=== PATIENT | female | born 1985 | race Caucasian/White ===

== ENCOUNTER 2017-06-16 19:44 | Emergency (ER) | payer OTHER, MEDICAID ==
[~2017-06-16] VITALS: Ht 160 cm; Wt 67.3 kg
[~2017-06-16 19:44] MED LIST: FES300 PO; PREN1TAB69 PO
[2017-06-16 20:33] VITALS: BP 111/74; PULSE 59; RESP 16; O2SAT 99
--- NOTE | 2017-06-16 21:36 | DRSVH ---
PROCEDURE: X-RAY RIGHT ANKLE, MINIMUM THREE VIEWS ([id number]) INDICATIONS: Twisted ankle, worsening pain TECHNIQUE: 3 views of the ankle were acquired. COMPARISON: None. FINDINGS: Bones: No fractures or dislocations. Ankle mortise is normally aligned. No suspicious bony lesions . Soft tissues: No tibiotalar joint effusion. Achilles tendon appears normal. IMPRESSION: No visualized acute fracture or dislocation. However, if clinical concern and/or pain pe rsist, short interval imaging followup in 7-10 days is recommended, as occult injury cannot be defini tively excluded. Dictated by: Ashley Garcia M.D. on 06/16/2017 at 21:34 Approved by: Ashley Garcia M.D. on 06/16/2017 at 21:35
--- NOTE | 2017-06-16 22:45 | ED.REPORT ---
HPI-Extremity Problem Lower Date of Service Jun 16, 2017 ED Provider: Doc,Ed MD A 32 year old female with a history of fibromyalgia, arthritis and degenerative disc disease presents to the ED complaining of right ankle pain. The pt tripped on the stairs this morning and twisted her ankle inward. The pain has worsened with ambulation throughout the day and the pt now finds it difficult to walk. No other trauma is reported. Nursing Notes Stated Complaint: HURT ANKLE Chief Complaint: Extremity Trauma Nursing Notes Reviewed: Yes Allergies: Coded Allergies: [place] (Verified Allergy, Unknown, 06/16/17) Scheduled Ferrous Sulfate-Expunged Drug, Do Not Renew! (Feosol-Expunged Drug, Do Not Renew !) 325 Mg Tablet 325 ( PO DAILY Vit/Fe Fumarate/Fa-Expunged Drug, Do (-Expunged Drug, Do Not Renew!) 1 Each Tablet 1 EACH PO AM General Time Seen by MD: 22:44 Chief Complaint Ankle injury right Hx Obtained From: Patient Arrived By: Walk-in Onset Occurred: 9 - 12 hours ago Symptom Duration: Since onset Recent Healthcare: Recent doctor visit Similar Sx Previous: No Past Medical History Past Medical History Degeneritive Disc Disease Fibromyalgia Scoliosis Arthritis Hx sternum injury Past Surgical History C section Family History noncontributory Smoking History Current Every Day Smoker Social History Alcohol Use: Denies alcohol use Drug Use: THC Other Social History: Good social support, Lives with children, Local resident Occupation Works at [employer] Ambulatory Status Independent Review of Systems Musculoskeletal: Reports: Extremity pain, Denies: Back pain, Neck pain Skin: Denies Rash Complete sys rev & neg: except as marked. Respiratory: Denies: Non-productive cough, Shortness of breath Cardiovascular: Denies: Chest pain GI: Denies: Abdominal pain, Vomiting Physical Exam Initial Vital Signs Vital Signs (First) Date Time Temp Pulse Resp B/P Pulse Ox O2 Delivery O2 Flow Rate FiO2 06/16/17 20:33 37.1 59 16 111/74 99 Room Air Initial VS: Reviewed Lower Extremity / Pelvis / MS: Atraumatic, Full range of motion Ankle / Foot: Neurologic intact, Vascular intact mild amount of swelling around the lateral aspect of the right ankle ecchymosis, tenderness and swelling over the right ATFL General/Constitutional: Awake, Alert Respiratory / Chest: Atraumatic, Breath sounds NL, Breath sounds = bilat, No respiratory distress Cardiovascular: Heart rate NL, Regular rhythm, Heart sounds NL Skin: No rash, Warm, Dry Neurologic: Oriented X3, Speech NL, No motor deficits, No sensory deficits Head / Eyes: Atraumatic, Normocephalic, PERRL, EOMI ENT: Atraumatic, Airway patent, Mucous membranes moist Neck: Atraumatic, Supple, Full range of motion Abdomen: Atraumatic, Soft, Non-tender Back: Atraumatic, Full range of motion Upper Extremity / MS: Atraumatic, Full range of motion Psychiatric: Affect NL, Mood NL Interpretation & Diagnostics Lab Results Interpretation Test 06/16/17 21:20 Hold Urine Received (Received) X-Ray Interpretation Xray Interpretation: IMPRESSION: No visualized acute fracture or dislocation. However, if clinical concern and/or pain persist, short interval imaging followup in 7-10 days is recommended, as occult injury cannot be definitively excluded. Dictated by: Ashley Garcia M.D. on 06/16/2017 at 21:34 Approved by: Ashley Garcia M.D. on 06/16/2017 at 21:35 X-Ray Ordered: Ankle right Interpretation / Wet Read by: Interpret - Radiologist Re-Eval/Medical Decision Med Decision/Clinical Course No fx on xray, but physical exam shows eccymosis, tenderness and swelling most consistent with sprain. aircast placed and crutches given. Insturctions to ice and use ibuprofen for pain, norco prepack given for breakthrough pain. f/u with pcp within 1 week Source of Hx: Old records Re-Evaluation/Progress : Time of Eval: 23:34 Patient Status: Condition improved Re-Evaluation/Progress Note: Pt rechecked, who is comfortable. The diagnosis and plan for discharge are discussed. The pt understands and agrees with the plan. All questions are addressed at this time. Counseled Regarding: Diagnosis, Lab results, Need for follow-up, When/why to return to ED Discharge & Departure Impression: Primary Impression: Right ankle sprain Encounter type: initial encounter Involved ligament of ankle: unspecified ligament Qualified Code: S93.401A - Sprain of unspecified ligament of right ankle, initial encounter Disposition: Home Discharge Condition All VS Reviewed: Yes Condition: Stable Patient Instructions: Ankle Sprain (GEN) Additional Instructions: Thank you for entrusting us with your care. Your evaluation was reassuring and there are no fractures seen on x-ray. Use the crutches for additional support. Wear the splint until you are seen in follow up. Call your primary care physician to arrange a follow up appointment in the next several days. Return to the emergency department if you develop any new or worsening symptoms such as worsening pain or swelling. Referrals: Elizabeth Dietz MD (PCP) Scribe Attestation Portions of this note were transcribed by Haris Baez. I, Dr. Ferris personally performed the history, physical exam and medical decision-making; I reviewed and confirmed the accuracy of the information in the transcribed note. copies to: Elizabeth Dietz MD, Gary R DO Jun 16, 2017 22:45 HARIS BAEZ Jun 16, 2017 23:20
[2017-06-16 23:50] VITALS: BP 105/62; PULSE 59; RESP 18; O2SAT 98
[2017-06-16] MEDS ORDERED: _HYDROcodone/APAP 5-325 mg Tablet PO PRN (23:50)
== END 2017-06-17 00:10 | disposition home or self-care (01) ==
LOC: SED 19:44
DX: S93.491A Sprain of other ligament of right ankle, initial encounter (principal); W01.0XXA Fall on same level from slipping, tripping and stumbling without subsequent striking against object, initial encounter; Y93.01 Activity, walking, marching and hiking; Y92.89 Other specified places as the place of occurrence of the external cause; Y99.8 Other external cause status; R26.2 Difficulty in walking, not elsewhere classified; M79.7 Fibromyalgia; F17.200 Nicotine dependence, unspecified, uncomplicated; Z87.39 Personal history of other diseases of the musculoskeletal system and connective tissue; Z87.828 Personal history of other (healed) physical injury and trauma; Z91.018 Allergy to other foods